=== PATIENT | female | born 1985 | race Caucasian/White ===

== ENCOUNTER → 2020-09-12 | Outpatient (CLI) | payer OTHER ==
--- NOTE | 2020-09-12 21:37 | REP ---
INDICATION: DYSMENORRHEA COMPARISON: None. TECHNIQUE: Transabdominal grayscale and color B-mode pelvic ultrasound followed by transvaginal examination for better evaluation of the endometrium and adnexa . FINDINGS: Bladder is unremarkable and measures 13.4 x 9.0 x 11.3 cm. Normal anteverted uterus measures 9.9 x 4.2 x 6.4 cm. The endometrial complex measures 15.4 mm thickness. Few nabothian cysts are identified in the cervical region. Bilateral ovaries are normal in appearance and vascularity without evidence for torsion. Right ovary measures 3.3 x 2.9 x 2.6 cm; left ovary measures 3.4 x 1.9 x 3.4 cm. No pelvic fluid or adnexal mass lesion IMPRESSION: Normal pelvic ultrasound <Electronically signed by Rashad Jose > 09/12/20 3331
== END ==
LOC: M RAD 10:51
PROVIDERS: ATTEND Physician Assistant
DX: N94.6 Dysmenorrhea, unspecified (principal)